=== PATIENT | female | born 1975 | race Caucasian/White ===

== ENCOUNTER 2016-09-06 12:02 | Inpatient (IN) ==
[2016-09-06 12:47] LABS: MANUAL DIFF NEEDED? NO
[2016-09-06 12:49] LABS: URINE SOURCE VOIDED
[2016-09-06 12:52] LABS: BILIRUBIN URINE NEGATIVE (NEGATIVE); BLOOD URINE 3+ (NEGATIVE); CLARITY CLEAR (CLEAR); COLOR YELLOW; GLUCOSE URINE NEGATIVE (NEGATIVE); LEUKOCYTES URINE TRACE (NEGATIVE); NITRITE URINE NEGATIVE (NEGATIVE); PROTEIN URINE 2+(100 mg/dL) mg/dL (NEGATIVE); UROBILINOGEN URINE NORMAL
[2016-09-06 12:57] LABS: BASO% 0.1 % (0.0-0.8); EOS# 0.15 X1000 (0.0-0.7); EOS% 1.5 % (0.0-10.0); HEMATOCRIT 34.4 % (37.0-47.0); HEMOGLOBIN 11.7 g/dL (12.0-16.0); IMM GRAN# 0.11 X1000 (0.0-0.04); IMM GRAN% 1.1 % (0.0-0.5); LYMPH% 16.4 % (20.5-51.1); MCH 29.3 PG (27-31); MONO# 0.69 X1000 (0.11-0.59); MONO% 7.1 % (1.7-9.3); MPV 9.4 FL (7.4-10.4); NEUT% 73.8 % (42.2-75.2); PLT 243 X1000 (130-400)
[2016-09-06] MEDS ORDERED: STADOL IV PRN ×3 (13:58)
[2016-09-06] MEDS ORDERED: ZOFRAN IV PRN (13:58)
[2016-09-06] MEDS ORDERED: PEPCID PO PRN (13:58)
[2016-09-06] MEDS ORDERED: PITOCIN 30 UNITS/LR 30 UNITS/500 ML IV.SOLN IV SCH (13:58)
[2016-09-06] MEDS ORDERED: PEPCID IV PRN (13:58)
[2016-09-06] MEDS ORDERED: KEFZOL 1 GM/D5W 1 GM/50 ML IVPB IV PRN (13:58)
[2016-09-06] MEDS ORDERED: LR 1,000 ML IV ONE (13:58)
[2016-09-06] MEDS ORDERED: TYLENOL PO PRN (13:58)
[2016-09-06] MEDS ORDERED: REGLAN PO ONE (13:58)
[2016-09-06] MEDS ORDERED: AMBIEN PO PRN (13:58)
[2016-09-06] MEDS ORDERED: PEPCID PO ONE (13:58)
[2016-09-06] MEDS ORDERED: BRETHINE SUBQ PRN (13:58)
[2016-09-06] MEDS: TRANDATE PO SCH ×2 (14:48→21:35)
[2016-09-06] MEDS ORDERED: CYTOTEC PO ONE (22:00)
[2016-09-07] MEDS ORDERED: CYTOTEC PO SCH (02:00)
[2016-09-07] MEDS: LR 1,000 ML IV SCH ×2 (02:15→10:51)
[2016-09-07] MEDS ORDERED: NAROPIN 0.2% EPIDURAL PRN (08:16)
[2016-09-07] MEDS ORDERED: XYLOCAINE-MPF 1% INJ ONE (08:26)
[2016-09-07] MEDS ORDERED: MINERAL OIL MISC ONE (08:26)
[2016-09-07] MEDS: TRANDATE PO SCH (08:48)
[2016-09-07 08:57] LABS: MANUAL DIFF NEEDED? NO
[2016-09-07 09:33] LABS: BASO% 0.1 % (0.0-0.8); EOS# 0.12 X1000 (0.0-0.7); EOS% 0.9 % (0.0-10.0); HEMATOCRIT 33.9 % (37.0-47.0); HEMOGLOBIN 11.4 g/dL (12.0-16.0); IMM GRAN# 0.12 X1000 (0.0-0.04); IMM GRAN% 0.9 % (0.0-0.5); LYMPH# 1.52 X1000 (1.2-3.4); LYMPH% 11.3 % (20.5-51.1); MCH 29.1 PG (27-31); MCHC 33.6 g/dL (33-37); MCV 86.5 FL (81-99); MONO# 0.81 X1000 (0.11-0.59); MPV 9.4 FL (7.4-10.4); NEUT% 80.8 % (42.2-75.2); PLT 205 X1000 (130-400); RBC 3.92 XMIL (4.2-5.4)
[2016-09-07] MEDS ORDERED: APRESOLINE IV ONE ×3 (09:35→10:43)
[2016-09-07] MEDS ORDERED: PEPCID IV ONE (10:00)
[2016-09-07] MEDS ORDERED: BICITRA PO ONE (10:00)
[2016-09-07] MEDS ORDERED: XYLOCAINE-MPF 2% ONE (12:18)
[2016-09-07 12:39] LABS: BE -8.4 mmoll (-3.0-3.0); BLOOD TYPE ARTERIAL; METHB 1.5 % (0.0-1.5); O2(CT) 6.4 mL/dL (15.0-23.0); PCO2(98.6) 74 mmHg (35-45); SAMPLE BLOOD; THB 15.6 g/dL (11.5-17.4)
[2016-09-07] MEDS ORDERED: HYDROXYZINE IM PRN (12:43)
[2016-09-07] MEDS ORDERED: MINERAL OIL PO PRN (12:43)
[2016-09-07] MEDS ORDERED: M-M-R II VACCINE SUBQ ONE (12:43)
[2016-09-07] MEDS ORDERED: BOOSTRIX VACCINE IM ONE (12:43)
[2016-09-07] MEDS ORDERED: BENADRYL PO PRN (12:43)
[2016-09-07] MEDS ORDERED: HYDROXYZINE PO PRN (12:43)
[2016-09-07] MEDS ORDERED: XYLOCAINE-MPF 1% INJ PRN (12:43)
[2016-09-07] MEDS ORDERED: PITOCIN 30 UNITS/LR 30 UNITS/500 ML IV.SOLN IV ONE (12:43)
[2016-09-07] MEDS ORDERED: CYTOTEC PO PRN (12:43)
[2016-09-07] MEDS ORDERED: PITOCIN 20 UNITS/LR 20 UNITS/1,000 ML IV.SOLN IV SCH (12:43)
[2016-09-07] MEDS ORDERED: BENADRYL IV PRN (12:43)
[2016-09-07] MEDS ORDERED: PITOCIN IM PRN (12:43)
[2016-09-07] MEDS ORDERED: AMBIEN PO PRN (12:43)
[2016-09-07 12:59] LABS: ALLEN TEST NO; DRAW SITE UMBILICAL; MODALITY ROOM AIR
[2016-09-07 13:02] LABS: PO2(98.6) 18 mmHg (60-100)
[2016-09-07] MEDS: PERI MEDS (DERMOPLAST/NUPERCAINAL/TUCKS) MISC PRN (13:19)
[2016-09-07] MEDS: MOTRIN PO PRN (15:58)
[2016-09-07] MEDS: NORCO-10 PO PRN ×2 (15:59→22:32)
[2016-09-07] MEDS: PERICOLACE PO SCH (20:23)
[2016-09-08] MEDS: NORCO-10 PO PRN ×5 (04:19→22:46)
[2016-09-08] MEDS: MOTRIN PO PRN ×3 (04:19→22:46)
[2016-09-08 06:17] LABS: MANUAL DIFF NEEDED? NO
[2016-09-08 06:21] LABS: BASO% 0.1 % (0.0-0.8); EOS# 0.17 X1000 (0.0-0.7); EOS% 1.1 % (0.0-10.0); HEMATOCRIT 32.1 % (37.0-47.0); HEMOGLOBIN 10.5 g/dL (12.0-16.0); IMM GRAN# 0.08 X1000 (0.0-0.04); IMM GRAN% 0.5 % (0.0-0.5); LYMPH# 1.88 X1000 (1.2-3.4); LYMPH% 12.2 % (20.5-51.1); MCH 28.5 PG (27-31); MCHC 32.7 g/dL (33-37); MCV 87.2 FL (81-99); MONO% 7.2 % (1.7-9.3); MPV 9.4 FL (7.4-10.4); NEUT% 78.9 % (42.2-75.2); PLT 216 X1000 (130-400); RBC 3.68 XMIL (4.2-5.4)
--- NOTE | 2016-09-08 07:27 | OPERATIVE NOTE ---
PROCEDURE DATE: 09/07/2016 PREDELIVERY DIAGNOSES: 1. Intrauterine at 38 weeks. 2. Chronic hypertension. 3. Advanced maternal age. 4. High risk human papilloma virus infection of the cervix. 5. Chronic rheumatoid arthritis. POSTDELIVERY DIAGNOSES: 1. Intrauterine at 38 weeks. 2. Chronic hypertension. 3. Advanced maternal age. 4. High risk human papilloma virus infection of the cervix. 5. Chronic rheumatoid arthritis. 6. Shoulder dystocia. 7. macrosomia. 8. Vacuum-assisted vaginal delivery. CONDITION: Stable. DESCRIPTION OF PROCEDURE IN DETAIL: Ms. Nash is a 41-year-old, 2, para 1, 38 weeks with chronic hypertension being induced. She was admitted and given Cytotec this morning. She was started on Pitocin, ruptured, given epidural anesthesia. Progressed quickly with decreased beat- to-beat and heart rate deceleration, so once patient became complete a vacuum was applied 550 mmHg and, with the next 5 pushes, traction on the vacuum resulted in delivery of the baby's head at which time the shoulder dystocia was diagnosed and resolved using the Ceballos' corkscrew maneuver. The placed on mother's abdomen and cord doubly clamped and cut. Care of taken over by nursery personnel. A section of the cord clamped off for cord pH. Cord blood obtained. Gentle traction on the cord resulted in delivery of the placenta. It was intact. A second-degree midline laceration repaired with 3-0 Polysorb. No clots or foreign material in the vagina. All counts correct. ESTIMATED BLOOD LOSS: 100 mL. PLAN: Expect routine . cc: MD Everardo Anthony MD
[2016-09-08] MEDS: HEMOCYTE PLUS CAPSULE PO SCH (08:12)
[2016-09-08] MEDS: PRECARE PO SCH (08:12)
[2016-09-08] MEDS: PERICOLACE PO SCH (20:20)
[2016-09-08] MEDS: PERI MEDS (DERMOPLAST/NUPERCAINAL/TUCKS) MISC PRN (20:21)
[2016-09-09] MEDS: NORCO-10 PO PRN ×4 (07:16→23:16)
[2016-09-09] MEDS: MOTRIN PO PRN ×2 (07:16→19:16)
[2016-09-09] MEDS: HEMOCYTE PLUS CAPSULE PO SCH (08:42)
[2016-09-09] MEDS: TRANDATE PO SCH ×2 (08:42→19:16)
[2016-09-09] MEDS: PRECARE PO SCH (08:42)
--- NOTE | 2016-09-09 12:06 | Diag Imaging Result Doc PS360 ---
EXAM: CHEST-2 VIEWS HISTORY: shortness of breath TECHNIQUE: COMPARISON: 12/14/2010 FINDINGS: The lungs are well expanded. The heart is borderline mildly prominent. There are increased interstitial markings in the mid and lower lungs. No pleural effusions. IMPRESSION: Cardiomegaly with bilateral infiltrates which may represent pulmonary edema. Follow-up films recommended. Electronically signed by Tone Gary 09/09/2016 12:04 PM
[2016-09-09] MEDS ORDERED: LASIX PO ONE (12:23)
[2016-09-09] MEDS: PERICOLACE PO SCH (19:15)
[2016-09-10] MEDS: TRANDATE PO SCH ×4 (00:35→16:32)
[2016-09-10] MEDS: PERICOLACE PO SCH ×2 (00:35→20:05)
[2016-09-10] MEDS: NORCO-10 PO PRN ×4 (03:29→20:08)
[2016-09-10] MEDS: MOTRIN PO PRN ×3 (03:29→20:09)
[2016-09-10] MEDS: LASIX PO SCH (08:55)
[2016-09-10] MEDS: HEMOCYTE PLUS CAPSULE PO SCH (08:55)
[2016-09-10] MEDS: PRECARE PO SCH (08:55)
[2016-09-11] MEDS: NORCO-10 PO PRN ×2 (00:59→22:25)
[2016-09-11] MEDS: TRANDATE PO SCH ×3 (08:20→21:29)
[2016-09-11] MEDS: HEMOCYTE PLUS CAPSULE PO SCH (08:20)
[2016-09-11] MEDS: LASIX PO SCH (08:20)
[2016-09-11] MEDS: PRECARE PO SCH (08:20)
[2016-09-11] MEDS: MOTRIN PO PRN ×2 (08:25→17:56)
[2016-09-11] MEDS: NORCO-5 PO PRN ×3 (08:25→17:55)
[2016-09-11] MEDS ORDERED: LASIX PO ONE (19:44)
[2016-09-11] MEDS: PERICOLACE PO SCH ×2 (19:52→21:29)
--- NOTE | 2016-09-11 22:30 | PROGRESS NOTE ---
DATE: 09/11/2016 SUBJECTIVE: She is day 4 with hypertension and shortness of breath. Delivered via vacuum-assisted vaginal delivery. Ms. Nash states she is feeling fine, eating well, ambulating, voiding; however, her blood pressure remains high and she gets short of breath at night. MEDICATIONS: Labetalol 200 three times a day and she is also using Lasix every 8 hours by mouth. OBJECTIVE: Vital signs: Temperature afebrile. Pulse 100. Blood pressure 150/88. General: She appears to be in no distress at this time, eating, ambulating. Lungs: Clear. Heart: Regular sinus rhythm. Abdomen: Soft. Extremities: +2 lower extremity edema. LABORATORY VALUES: No new laboratory values. ASSESSMENT: Four days with hypertension and shortness of breath. I have consulted hospitalist and we anticipate discharge in the morning after evaluation by the hospitalist. cc: MD Everardo Anthony MD
[2016-09-12] MEDS ORDERED: LASIX IV ONE ×2 (04:48→06:49)
[2016-09-12] MEDS ORDERED: NITROGLYCERIN TOP ONE (04:48)
[2016-09-12] MEDS ORDERED: MORPHINE IV ONE (04:50)
[2016-09-12] MEDS: TRANDATE PO SCH ×3 (05:07→22:21)
--- NOTE | 2016-09-12 06:22 | EKG Report ---
Test Performed on : 09/12/2016 05:36:47 AM Test Reason : SOB, chest Blood Pressure : / mmHG Vent. Rate : 098 BPM Atrial Rate : 098 BPM P-R Int : 160 ms QRS Dur : 070 ms QT Int : 348 ms P-R-T Axes : 058 041 053 degrees QTc Int : 444 ms Normal sinus rhythm. Possible Left atrial enlargement Borderline ECG No previous ECGs available Unconfirmed Result
[2016-09-12 07:27] LABS: AGAP 10; ALBUMIN 3.2 g/dL (3.5-5.0); ALKALINE PHOSPHATASE 96 U/L (32-104); BUN 12 mg/dL (8-22); CALCIUM 9.5 mg/dL (8.8-10.2); CHLORIDE 99 mmol/L (98-107); COSMO 277; GOT 21 U/L (10-30); GPT 18 U/L (10-36); POTASSIUM 4.4 mmol/L (3.5-5.1); SODIUM 138 mmol/L (136-145); TCO2 29 mmol/L (25-35)
[2016-09-12] MEDS: HEMOCYTE PLUS CAPSULE PO SCH ×2 (07:39→09:52)
[2016-09-12] MEDS: PRECARE PO SCH ×2 (07:39→09:52)
--- NOTE | 2016-09-12 08:07 | Diag Imaging Result Doc PS360 ---
CHEST-PORTABLE - 09/12/2016 INDICATION: SOB, chest pain TECHNIQUE: COMPARISON: 09/09/2016 FINDINGS: Stable borderline cardiomegaly. There is mild worsening in diffuse bilateral alveolar infiltrates that are multifocal. No pneumothorax or large effusion. IMPRESSION: Worsening dense bilateral alveolar infiltrates. Suggestive of ARDS. Electronically signed by José Luis Martinez 09/12/2016 8:05 AM
[2016-09-12] MEDS: LASIX PO SCH (08:45)
--- NOTE | 2016-09-12 09:16 | Diag Imaging Result Doc PS360 ---
CHEST-2 VIEWS - 09/12/2016 at 0909 INDICATION: pulmonary edema TECHNIQUE: COMPARISON: 0439 FINDINGS: There is significant improvement in the dense bilateral predominantly alveolar central infiltrates consistent with pulmonary edema. Stable cardiomegaly. Pulmonary vascularity is somewhat distended. No pneumothorax or significant pleural effusion. IMPRESSION: Improvement in the pulmonary edema. Electronically signed by José Luis Martinez 09/12/2016 9:13 AM
[2016-09-12 09:29] LABS: BE 7.2 mmoll (-3.0-3.0); BLOOD TYPE ARTERIAL; METHB 0.9 % (0.0-1.5); O2(CT) 15.5 mL/dL (15.0-23.0); PCO2(98.6) 34 mmHg (35-45); PO2(98.6) 78 mmHg (60-100); SAMPLE BLOOD; SAO2 97.2 % (95.0-100.0); THB 11.6 g/dL (11.5-17.4); pH(98.6) 7.55 (7.35-7.45)
[2016-09-12 09:32] LABS: DRAW SITE R RADIAL; MODALITY CANNULA
[2016-09-12 09:33] LABS: ALLEN TEST YES
[2016-09-12] MEDS: ZOSYN 3.375 GM/NS 3.375 GM/50 ML IVPB IV SCH ×3 (10:39→22:21)
[2016-09-12] MEDS: NORCO-10 PO PRN ×3 (11:44→20:10)
[2016-09-12] MEDS: MOTRIN PO PRN ×2 (11:44→20:09)
[2016-09-12] MEDS ORDERED: LASIX IV SCH (13:30)
[2016-09-12 14:25] LABS: HEMATOCRIT 33.8 % (37.0-47.0); HEMOGLOBIN 11.1 g/dL (12.0-16.0); MCH 28.8 PG (27-31); MCHC 32.8 g/dL (33-37); MCV 87.8 FL (81-99); MPV 9.3 FL (7.4-10.4); RBC 3.85 XMIL (4.2-5.4)
[2016-09-12] MEDS: DUONEB (A & A) INH SCH ×3 (15:45→22:39)
--- NOTE | 2016-09-12 16:36 | ECHO REPORT ---
ORDER DATE: 09/12/2016 INDICATION: 1. Reported cardiomyopathy. 2. Hypertension. 3. Morbid obesity. FINDINGS: 1. Right atrium is normal in size at 3.7 cm. 2. Mild tricuspid regurgitation. RV systolic pressure of 20. 3. Normal RV size and systolic function. 4. No significant pulmonic insufficiency. 5. Mild left atrial enlargement at 4.2 cm. 6. No mitral valve prolapse. Trace mitral regurgitation. 7. Normal LV size, end-diastolic dimension of 4.1. Suggestion of mild left ventricular hypertrophy with interventricular septal wall thickness of 1.2 and a posterior wall thickness of 1.1. Normal LV systolic function. Estimated EF 60% with normal wall motion. 8. Aortic valve opens well. It is trileaflet. No evidence of stenosis or insufficiency. 9. Aorta appears normal in visualized segments. 10. No pericardial effusion seen. 11. Details of this study were relayed to the treating service at 11 a.m. this morning considering that the study was ordered as a stat by Dr. Laboy. cc: MD Yadira Napier CRNP David L. Spangler, MD
--- NOTE | 2016-09-12 17:18 | CONSULTATION ---
DATE OF CONSULTATION: 09/12/2016 CHIEF COMPLAINT: Increased shortness of breath after delivery of vaginal on 09/07/2016. HISTORY OF PRESENTING ILLNESS: This is a 41-year-old female who was admitted on 09/07/2016 for a 38 week vaginal delivery of a baby girl. Since that time she has had some increased shortness of breath and high blood pressure. She had a chest x-ray on 09/09/2016 that showed cardiomegaly with bilateral infiltrates which may represent pulmonary edema. This a.m. on consultation she had an O2 saturation on room air of 89%. She was given Lasix 80 mg IV x1 around 4:50 a.m. this morning and another 60 mg IV x1 around 6:50 this morning. She has had according to the patient around 4 L of output since this Lasix and that she is feeling less short of breath at this time. She did have a chest x-ray this a.m. that showed worsening dense bilateral alveolar infiltrate suggestive of ARDS. Her last laboratory data was on 09/08/2016 so we are ordering at this time a stat ABG, CBC, CMP, cardiac profile with troponin, pro-BNP, echocardiogram and we will evaluate those results when they are available. AGAIN LABORATORY DATA: There is no new at this time. We have an ABG, CBC, BMP , cardiac profile, troponin, pro-BNP, echocardiogram ordered stat. ALLERGIES: No known drug allergies. PAST MEDICAL HISTORY: Hypertension and rheumatoid arthritis. PAST SURGICAL HISTORY: Of carpal tunnel and a right rotator cuff repair. FAMILY HISTORY: Of heart disease, cancer and CVA. SOCIAL HISTORY: She currently lives with family. Denied any tobacco, alcohol or illicit drug use. HOME MEDICATIONS: She was taken a Fusion Plus capsule 1 p.o. daily and a vitamin 1 p.o. daily. ASSESSMENT: 1. cardiomyopathy. 2. Accelerated hypertension. 3. Questionable bilateral pneumonia. 4. Rheumatoid arthritis history of. 5. Status post vaginal delivery on 09/07/2016. REVIEW OF SYSTEMS: She denied any fever, chills, blurred vision, dizziness. She denied any chest pain. She has had a nonproductive cough, shortness of breath. Denied any abdominal pain, constipation, diarrhea, burning or hurting with urination. PHYSICAL EXAMINATION: She had a temperature of 98.6 degrees, pulse 94, respirations 36, blood pressure 118/68 and was saturating 97-98% on 2 L via nasal cannula. It was noted around 4:30 this morning she had a blood pressure of 168/97 but after intervention it is improved.General: This is a 41-year-old female who is lying in the bed and answers questions appropriately. HEENT: Normocephalic and atraumatic. The pupils are equal, round, reactive to light. Extraocular movements are intact. Oropharynx and nares are clear. Neck: Supple. Lungs: Clear to auscultation bilaterally. Equal lung expansion and chest wall movement. Heart: With regular rate and rhythm. No murmurs, rubs, or gallops. Abdomen: Soft, nontender, nondistended. Bowel sounds are present x4 quadrants. Extremities: There is no clubbing, cyanosis, or edema. Neurological: The cranial nerves 2-12 are grossly intact. PLAN: We will again check all her labs as previously stated and her echocardiogram. Will also place her on Zosyn 3.375 g IV q.6, DuoNeb q.4 hours and further orders pending her lab and echocardiogram results. Dictated by ABDI Fallon for Gianluca Leo MD cc: ABDI Fallon MD David L. Spangler, MD John L. Stafford, MD Dr. Chad McCoy pt examined, agree with above [facility]ot MTDD
[2016-09-12] MEDS: LASIX IV SCH (19:52)
[2016-09-12] MEDS: BENADRYL PO SCH (20:09)
[2016-09-12] MEDS: PERICOLACE PO SCH (20:10)
[2016-09-13] MEDS: DUONEB (A & A) INH SCH ×3 (03:24→12:08)
[2016-09-13] MEDS: ZOSYN 3.375 GM/NS 3.375 GM/50 ML IVPB IV SCH ×2 (03:42→10:45)
[2016-09-13 05:47] LABS: MANUAL DIFF NEEDED? NO
[2016-09-13 05:52] LABS: BASO% 0.3 % (0.0-0.8); EOS# 0.31 X1000 (0.0-0.7); EOS% 3.2 % (0.0-10.0); HEMATOCRIT 34.3 % (37.0-47.0); IMM GRAN# 0.14 X1000 (0.0-0.04); IMM GRAN% 1.5 % (0.0-0.5); LYMPH# 1.29 X1000 (1.2-3.4); LYMPH% 13.5 % (20.5-51.1); MCH 28.4 PG (27-31); MCHC 32.1 g/dL (33-37); MCV 88.6 FL (81-99); MONO# 0.43 X1000 (0.11-0.59); MONO% 4.5 % (1.7-9.3); MPV 9.2 FL (7.4-10.4); PLT 293 X1000 (130-400); RBC 3.87 XMIL (4.2-5.4)
[2016-09-13 06:26] LABS: AGAP 12; ALKALINE PHOSPHATASE 101 U/L (32-104); BUN 17 mg/dL (8-22); CALCIUM 8.6 mg/dL (8.8-10.2); CHLORIDE 98 mmol/L (98-107); COSMO 282; GOT 19 U/L (10-30); GPT 14 U/L (10-36); POTASSIUM 3.7 mmol/L (3.5-5.1); SODIUM 139 mmol/L (136-145); TCO2 29 mmol/L (25-35); TOTAL PROTEIN 6.4 g/dL (6.3-8.3)
--- NOTE | 2016-09-13 08:17 | Diag Imaging Result Doc PS360 ---
EXAM: CT THORAX W/CONTRAST HISTORY: pulmonary edema, SOB TECHNIQUE: CT of the chest with intravenous contrast with dose reduction (clarity.) COMMENT: There are patchy, centrilobular groundglass alveolar opacities throughout both lungs. There is a small right pleural effusion. There is right paratracheal adenopathy with a node exceeding 15 mm on image 57. There is a 13 mm AP window node. No identifiable abnormalities are present in the visualized portion of the abdomen. No acute bony abnormalities are present. The heart size is not enlarged. IMPRESSION: Pulmonary edema and/or pneumonitis. Small right pleural effusion. Possibility of atypical pneumonia cannot be excluded. Electronically signed by Levar Carballo 09/13/2016 8:14 AM
[2016-09-13] MEDS: TRANDATE PO SCH (08:54)
[2016-09-13] MEDS: LASIX IV SCH (08:54)
[2016-09-13] MEDS: PRECARE PO SCH (08:56)
[2016-09-13] MEDS: HEMOCYTE PLUS CAPSULE PO SCH (08:56)
[2016-09-13] MEDS: BENADRYL PO SCH (08:56)
[2016-09-13] MEDS: NORCO-5 PO PRN (10:44)
[2016-09-13 12:30] VITALS: BP 137/82
--- NOTE | 2016-09-13 14:19 | PROGRESS NOTE ---
DATE: 09/13/2016 SUBJECTIVE: Patient states she is feeling much better today. OBJECTIVE: Vital Signs: Temperature 98 degrees, pulse 85, respirations 24, blood pressure 115/69, saturating 97% on room air. General: This is a 41-year-old female who is lying in the bed, and answers questions appropriately. HEENT: Normocephalic and atraumatic. Pupils are equal, round, and reactive to light. Extraocular movements are intact. Oropharynx and nares are clear. Neck: Supple. Lungs: Clear to auscultation bilaterally with equal lung expansion and chest wall movement. Heart: With regular rate and rhythm. No murmurs, rubs, or gallops. Abdomen: Soft, nontender, nondistended. Bowel sounds are present x4 quadrants. Extremities: No clubbing, cyanosis, or edema. Neurological: The cranial nerves 2-12 are grossly intact. LABORATORY DATA: Shows a white blood cell count of 9.59, hemoglobin 11, hematocrit 34.3, platelets 293,000. Sodium 139, potassium 3.7, chloride 98, CO2 29, BUN of 17, creatinine 1, glucose 155. Chest CT showed pulmonary edema and/or pneumonitis, a small right pleural effusion and the possibility of atypical pneumonia cannot be excluded. ASSESSMENT: 1. cardiomyopathy improved. 2. Bilateral pneumonia. 3. Accelerated hypertension. 4. Status post vaginal delivery on 09/07/2016. It is felt that the patient is much improved from her diuresis and antibiotics. She is not short of breath any longer and saturating 97-98% on room air. Her lungs are clear. Her white count has returned to normal and she has been afebrile for greater than 24 hours. Her echocardiogram was noted to be normal with an ejection fraction of 60%. She can from hospitalist standpoint be discharged home. She will need to continue Lasix 20 mg p.o. daily for 3 days and then p.r.n. for any edema. Augmentin 875 mg p.o. b.i.d. for 7 days #14 with no refills and further medications per her [employer]. Again disposition from hospitalist standpoint she can safely be discharged home today. Dictated by ABDI Fallon for Gianluca Leo MD cc: ABDI Fallon MD David L. Narda, MD pt examined, agree with above APENOT MTDD
--- NOTE | 2016-09-14 04:38 | DISCHARGE SUMMARY ---
ADMISSION DATE: 09/06/2016 DISCHARGE DATE: 09/13/2016 ADMISSION DIAGNOSES: 1. Intrauterine at 38 weeks. 2. Chronic hypertension. 3. Advanced maternal age. 4. High risk human papillomavirus infection of cervix. 5. Chronic rheumatoid arthritis. DISCHARGE DIAGNOSES: 1. Status post vacuum assisted vaginal delivery with shoulder dystocia relieved using corkscrew maneuver. 2. macrosomia. 3. Chronic hypertension. 4. Advanced maternal age. 5. High-risk human papillomavirus infection of the cervix. 6. Chronic rheumatoid arthritis. HOSPITAL COURSE: The patient was admitted on the to receive Cytotec for an induction of labor secondary to chronic hypertension. She was started on Pitocin, underwent artificial rupture of membranes, and underwent epidural anesthesia. She progressed quickly but had some heart rate decelerations so a vacuum was applied and 3-5 pushes resulted in the delivery of the baby's head. Dr. Kyle did encounter a shoulder dystocia that resolved using the Ceballos corkscrew maneuver. Baby did weigh 9 pounds 2 ounces. He repaired a second-degree midline laceration. , the patient initially did well. However, she had started to report some shortness of breath overnight when Dr. Rea rounded on her on the . A chest x-ray was ordered and she was also started on labetalol 200 mg b.i.d. secondary to the elevated blood pressures. Her breathing had improved slightly after she was noted to have some pulmonary edema by chest x-ray. She was given a fair amount of Lasix and she did diurese. Hospitalist was consulted. There was also suspicion of mild cardiomegaly and possible pneumonia. She was started on antibiotics and she improved significantly by the and it was felt she was stable to go home. At this point in time, she had no difficulty breathing. She was ambulating and voiding well. Vaginal bleeding was scant. She was bottle-feeding without significant breast tenderness and she strongly desired to go home. DISCHARGE MEDICATIONS: She will be discharged with the following medications: 1. Augmentin 875 mg 1 p.o. b.i.d. for 7 days. 2. Lasix 20 mg p.o. daily. 3. Mcdonald 5 one p.o. q.6 hours as needed for pain, #14 hole. 4. Labetalol 200 mg p.o. b.i.d., #60. 5. Ibuprofen 800 mg 1 p.o. q.8 hours as needed for pain with 30 of these. DISCHARGE INSTRUCTIONS: The patient was instructed to follow up in the [facility] office within a week. Of note, she did have an echocardiogram during her stay and it was noted to be normal with an ejection fraction of 60%. We appreciate the hospitalist helping us with this consult. Again, the patient will be discharged to follow up with [facility]. cc: MD Everardo Naik MD
== END 2016-09-13 15:30 | disposition home or self-care (01) ==
LOC: P.OPLD 12:02 → P.LD 12:08 → P.WC 09-07 16:34
PROVIDERS: ADMIT Obstetrics & Gynecology; ATTEND Obstetrics & Gynecology